=== PATIENT | male | born 1985 | race Hispanic/Latino ===

== ENCOUNTER 2020-01-15 12:32 | Emergency (ER) | payer OTHER ==
[2020-01-15] MEDS ORDERED: Acetaminophen 500 MG TAB ONE (13:14)
[2020-01-15 13:28] LABS: #Lymphocytes 1.3 thou/uL (1.20-3.40); #Monocytes 0.7 thou/uL (0.11-0.59); #Neutrophils 13.3 thou/uL (1.40-6.50); %Basophils 0.1 % (0.0-1.0); %Eosinophils 0.2 % (0.0-10.0); %Lymphocytes 8.3 % (21.0-51.0); %Monocytes 4.5 % (0.0-10.0); Hemoglobin 16.2 g/dL (14.0-18.0); Mean Corpuscular HGB CONC 34.8 g/dL (32.0-36.0); Mean Corpuscular Hemoglobin 31.2 pg (27.0-31.0); Mean Corpuscular Volume 89.6 fL (78.0-98.0); Mean Platelet Volume 9.7 fL (7.4-10.4); Platelet Count 177 thou/uL (130-400); RBC Distribution Width 11.3 % (11.5-14.5); White Blood Cell (WBC) Count 15.2 thou/uL (4.8-10.8)
[2020-01-15 13:49] LABS: ALT (SGPT) 35 U/L (8-55); AST (SGOT) 26 U/L (5-34); Albumin 4.9 g/dL (3.5-5.0); Alkaline Phosphatase 150 U/L (40-110); Anion Gap 13 mmol/L (10-20); Bilirubin, Total 0.7 mg/dL (0.2-1.2); Calc. Creatinine Clearance 0 mL/min (70-130); Calcium 9.8 mg/dL (7.8-10.44); Carbon Dioxide 25 mmol/L (22-29); Chloride 102 mmol/L (98-107); Estimated GFR-MDRD 90; Globulin 3.5 g/dL (2.4-3.5); Glucose 109 mg/dL (70-105); Potassium 3.6 mmol/L (3.5-5.1); Protein, Total 8.4 g/dL (6.0-8.3); Sodium 136 mmol/L (136-145)
--- NOTE | 2020-01-15 13:53 | RAD ---
PORTABLE CHEST: 01/15/20 at 1:01 p.m. HISTORY: Sore throat, bodyaches. FINDINGS: The cardiomediastinum is normal. The lungs are clear. The bony thorax is normal. IMPRESSION: Normal exam. POS: [facility]
[2020-01-15 14:22] LABS: BUN (Urea Nitrogen) 10 mg/dL (8.9-20.6)
[2020-01-15 18:48] LABS: SARS-CoV-2 MS2 Positive; SARS-CoV-2 N Gene Negative; SARS-CoV-2 S Gene Negative; SARS-CoV-2 orf1ab Negative
--- NOTE | 2020-01-16 15:57 | EKG ---
Test Reason : Blood Pressure : / mmHG Vent. Rate : 098 BPM Atrial Rate : 098 BPM P-R Int : 110 ms QRS Dur : 084 ms QT Int : 328 ms P-R-T Axes : 000 -19 160 degrees QTc Int : 418 ms Sinus rhythm with short MD Nonspecific T wave abnormality S1 Q3 T3 pattern Abnormal ECG Confirmed by JAMES FERNANDES DO ([id number]), publication editor JAYLIN DENISE ([id number]) on 01/16/2020 3:56:40 PM Referred By: Confirmed By:JAMES FERNANDES DO
== END 2020-01-15 14:50 | disposition home or self-care (01) ==
LOC: ERS 12:32
DX: J06.9 Acute upper respiratory infection, unspecified (principal); Z20.828 Contact with and (suspected) exposure to other viral communicable diseases
CPT/HCPCS: 71045; 80053; 83605; 85025; 87040; 87081; 87430; 87635; 87804; 93005; U0003

== ENCOUNTER 2020-03-12 08:02 | Inpatient (IN) | payer SELFPAY ==
[2020-03-12] MEDS ORDERED: Meclizine HCl 25 MG TAB ONE (08:37)
[2020-03-12] MEDS ORDERED: Labetalol HCl 100 MG/20 ML VIAL ONE (08:37)
[2020-03-12 08:41] LABS: #Monocytes 0.3 thou/uL (0.11-0.59); #Neutrophils 5.7 thou/uL (1.40-6.50); %Basophils 0.2 % (0.0-1.0); %Eosinophils 0.4 % (0.0-10.0); %Lymphocytes 13.8 % (21.0-51.0); %Monocytes 3.7 % (0.0-10.0); %Neutrophils 81.9 % (42.0-75.0); Hemoglobin 15.4 g/dL (14.0-18.0); Mean Corpuscular HGB CONC 35.3 g/dL (32.0-36.0); Mean Corpuscular Hemoglobin 31.4 pg (27.0-31.0); Mean Platelet Volume 9.9 fL (7.4-10.4); Platelet Count 150 thou/uL (130-400); RBC Distribution Width 11.5 % (11.5-14.5)
--- NOTE | 2020-03-12 08:55 | CT ---
CT BRAIN WITHOUT CONTRAST: HISTORY: Dizziness, vertigo FINDINGS: No evidence of acute infarct, hemorrhage, midline shift or abnormal extra-axial fluid collections is seen. The ventricular size is appropriate and the basilar cisterns are patent. The bony calvarium is intact. The visualized paranasal sinuses are well aerated. IMPRESSION: No CT evidence of acute intracranial process.
[2020-03-12 09:09] LABS: ALT (SGPT) 35 U/L (8-55); AST (SGOT) 33 U/L (5-34); Albumin 4.7 g/dL (3.5-5.0); Alkaline Phosphatase 107 U/L (40-110); Anion Gap 14 mmol/L (10-20); BUN (Urea Nitrogen) 11 mg/dL (8.9-20.6); Bilirubin, Total 0.6 mg/dL (0.2-1.2); Calc. Creatinine Clearance 0 mL/min (70-130); Carbon Dioxide 23 mmol/L (22-29); Chloride 105 mmol/L (98-107); Estimated GFR-MDRD Greater than 90; Glucose 141 mg/dL (70-105); Potassium 3.6 mmol/L (3.5-5.1); Protein, Total 7.7 g/dL (6.0-8.3); Sodium 138 mmol/L (136-145)
[2020-03-12 09:19] LABS: Acetaminophen Less than 6.0 mcg/mL (10.0-30.0); Alcohol Less than 10 mg/dL (Less than 10); Salicylate Less than 8.0 mg/dL (15.0-30.0)
[2020-03-12] MEDS ORDERED: Lorazepam 2 MG/ML VIAL ONE (09:27)
[2020-03-12 09:31] LABS: CKMB 2.8 ng/mL (0-6.6)
[2020-03-12] MEDS ORDERED: Aspirin Chewable 81 MG TAB ONE (09:34)
[2020-03-12] MEDS ORDERED: hydrALAZINE 20 MG/ML VIAL ONE (10:12)
[2020-03-12] MEDS ORDERED: Labetalol HCl 100 MG/20 ML VIAL SLOW IVP PRN (11:39)
[2020-03-12] MEDS ORDERED: hydrALAZINE 20 MG/ML VIAL SLOW IVP PRN (11:39)
--- NOTE | 2020-03-12 12:45 | HP ---
PRIMARY CARE PHYSICIAN: None. CHIEF COMPLAINT: Dizziness upon waking. HISTORY OF PRESENT ILLNESS: The patient is a 34-year-old male with past medical history significant for deafness since and presents to the ER today after waking up feeling dizzy. He denies any trauma, headache, shortness of breath, chest pain, substance abuse. He does state that he has been nauseated, though no vomiting or diarrhea. No abdominal pain. Today in the ER, they completed a brain CT, lab work and EKG. PAST MEDICAL HISTORY: Deafness since . PAST SURGICAL HISTORY: None. ALLERGIES: NO KNOWN DRUG ALLERGIES. MEDICATIONS: No home medications. No [id number] medications. SOCIAL HISTORY: The patient lives with two roommates. 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 He denies any smoking or drug use. He does drink occasionally on the weekends. FAMILY HISTORY: Mother is positive for hypertension. REVIEW OF SYSTEMS: All other review of systems are negative unless noted in HPI. PHYSICAL EXAMINATION: VITAL SIGNS: Blood pressure 167/119, pulse 77, respiratory rate 18, temperature 98.1, O2 saturation 99% on room air. GENERAL: The patient appears nontoxic and pain free. HEENT: Head, atraumatic and normocephalic. Eyes, PERRLA. Extraocular muscles intact. Nystagmus present horizontally and vertically. ENT, hearing absent on left and right. Mucous membranes moist. Normal dentition. NECK: Trachea midline. No lymphadenopathy. RESPIRATORY: Clear to auscultation bilaterally. Normal chest rise. No rhonchi, no wheezes, no rales. CARDIOVASCULAR: Regular rate and rhythm. No murmurs. No gallops. No rubs. ABDOMEN: Bowel sounds normal. No distention. No masses. No rigidity. EXTREMITIES: No edema. Posterior tibial pulse normal. No cyanosis. NEURO: Cranial nerves 2 through 12 are intact. Nystagmus noted horizontally and vertically. Cerebellar intact. 5/5 strength in upper and lower extremities. I did not assess gait at this time. SKIN: Warm, dry, and intact. PSYCH: Normal affect. Normal behavior. LABORATORY DATA: EKG shows sinus rhythm, 62 beats per minute. No ectopic beats. Brain CT showed no CT evidence of acute intracranial process. White blood cells 7.0, hemoglobin 15.4, hematocrit 43.6. Sodium 138, potassium 3.6, BUN 11, creatinine 0.83, GFR greater than 90, glucose 141. CK-MB 2.8, troponin 0.033. IMPRESSION AND PLAN: Dizziness with ischemic stroke versus hypertensive urgency. The patient has been given multiple doses of antihypertensive medications in the ER. His blood pressure is now down to 167/119. We will continue to monitor it on telemetry throughout his hospital stay and get him started on oral antihypertensives. His troponins were slightly elevated. We will continue to monitor them and may be due to demand from the hypertension, so we will continue to trend those. He does deny any chest pain this morning, any shortness of breath. We will have Neurology come and evaluate the patient along with completing a stroke workup of an echo and MRI. Fasting lipid will be drawn in the morning. Stroke Team will be consulted for the patient. The patient wishes to be a full code at this time. His brother Erasmo is his designated power of trade mark attorney. The patient has been discussed with Dr. Levin. Job ID: [id number]
--- NOTE | 2020-03-12 12:51 | MRI ---
MRI BRAIN WITHOUT CONTRAST: HISTORY: Vertigo, dizziness CORRELATION: CT scan from 03/12/2020. FINDINGS: No restricted diffusion is seen. There are multiple foci of T2 prolongation in the periventricular wh ite matter which are nonspecific and may be due to chronic headaches, deep white matter matter ischemic disease or demyelinating disorders.. The ventricular size is appropriate and the basilar cis terns are patent. No evidence of acute infarct, hemorrhage, midline shift or abnormal extra-axial fluid collections is seen. No tonsillar herniation is seen. There is mucosal disease in the paranasal sinuses. There is fluid in the mastoid air cells. IMPRESSION: No evidence of acute intracranial process.
[2020-03-12 13:31] LABS: Troponin I 0.023 ng/mL (< 0.028)
--- NOTE | 2020-03-12 14:28 | CON ---
NEUROLOGY CONSULTATION DATE OF CONSULTATION: 03/12/2020 REASON FOR CONSULTATION: Extreme dizziness. HISTORY OF PRESENT ILLNESS: Mr. Deric Feng is a 34-year-old male with past medical history significant for deafness since , presented to the emergency room after waking up and feeling extremely dizzy with nausea, but no vomiting. He also complains of headache. The history is taken from the patient's brother who communicated with the patient. The patient felt dizzy, but he does not feel dizzy and has a headache He denies focal weakness, focal paresthesias, vertigo, chest pain, abdominal pain, blurred vision, loss of vision, or loss of consciousness associated with the episode. The family decided to bring him to the emergency room for further evaluation since the dizziness did not resolve. In the emergency room, head CT was done, which was unremarkable, and EKG was also unremarkable. REVIEW OF SYSTEMS: All 10 systems were reviewed and were negative except the pertinent positive and negative mentioned in the HPI. PAST SURGICAL HISTORY: None. ALLERGIES: NO KNOWN DRUG ALLERGIES. MEDICATIONS: No home medications. SOCIAL HISTORY: The patient lives with two roommates. 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 He denies smoking or illegal drug use. FAMILY HISTORY: Family history is significant for hypertension. PHYSICAL EXAMINATION: VITAL SIGNS: Blood pressure 167/119, pulse 77, respiratory rate 18, and temperature 98. GENERAL: Alert and awake male, in mild distress. CVS: Regular rate and rhythm. CHEST: Clear. ABDOMEN: Soft. NECK: Supple. NEUROLOGICAL: Mental status; the patient is alert and oriented to person, place , and time. The brother, who is also the caregiver, helps with communicating with the patient. Cranial nerves 2 through 12 intact. Motor; muscle tone and bulk are normal. Strength 5/5 bilaterally. Cerebellar, no dysmetria to [id number] testing. Of note, the patient had initial dysmetria when he presented to the emergency room when examined by the ER physician. Gait deferred due to the patient's safety reasons. Sensory intact. DATA REVIEWED: I reviewed the CT scan, which did not reveal any acute intracranial pathology. EKG showed normal sinus rhythm. Labs were essentially unremarkable. ASSESSMENT AND PLAN: Mr. Deric Feng is consulted for extreme dizziness on waking up this morning associated with headache. He came to the emergency room with hypertensive emergency with blood pressure of 167/119. The symptoms improved after management of hypertension, most likely hypertensive emergency. MRI of the brain reviewed, which was negative for acute intracranial pathology. Strict control of blood pressure at this time. Check fasting lipid panel, hemoglobin A1c, TSH, telemetry . Neuro checks every 4 hours. Telemetry. Continue medical management per primary team. We will continue to follow. Thank you for the consult. Job ID: [id number] PANCHITO
[2020-03-12 15:49] LABS: Troponin I 0.011 ng/mL (< 0.028)
[2020-03-12 19:00] LABS: Troponin I Less than 0.010 ng/mL (< 0.028)
[2020-03-12] MEDS: Atorvastatin Calcium 40 MG TAB PO SCH (20:59)
[2020-03-13 04:28] LABS: #Eosinphils 0.1 thou/uL (0.0-0.7); #Lymphocytes 1.7 thou/uL (1.20-3.40); #Monocytes 0.5 thou/uL (0.11-0.59); %Basophils 0.4 % (0.0-1.0); %Eosinophils 0.8 % (0.0-10.0); %Lymphocytes 26.6 % (21.0-51.0); %Monocytes 8.2 % (0.0-10.0); %Neutrophils 63.9 % (42.0-75.0); Hemoglobin 14.9 g/dL (14.0-18.0); Mean Corpuscular HGB CONC 33.4 g/dL (32.0-36.0); Mean Corpuscular Volume 89.7 fL (78.0-98.0); Platelet Count 173 thou/uL (130-400); RBC Distribution Width 11.8 % (11.5-14.5); Red Blood Cell (RBC) Count 4.96 mill/uL (4.70-6.10); White Blood Cell (WBC) Count 6.3 thou/uL (4.8-10.8)
[2020-03-13 04:48] LABS: Anion Gap 10 mmol/L (10-20); BUN (Urea Nitrogen) 10 mg/dL (8.9-20.6); Calc. Creatinine Clearance 131 mL/min (70-130); Calcium 9.3 mg/dL (7.8-10.44); Carbon Dioxide 26 mmol/L (22-29); Cardiac Risk 3.9 (Less than 4.5); Chloride 103 mmol/L (98-107); Cholesterol 215 mg/dl (< 200 Desired); Estimated GFR-MDRD Greater than 90; Glucose 97 mg/dL (70-105); HDL Cholesterol 55 mg/dL (>60 Neg Risk); LDL Cholesterol, Calculated 135 mg/dL; Potassium 3.4 mmol/L (3.5-5.1); Sodium 136 mmol/L (136-145); Triglycerides 125 mg/dL (Less than 150)
[2020-03-13] MEDS ORDERED: Metoprolol Tartrate 50 MG TAB PO SCH (09:30)
[2020-03-13] MEDS ORDERED: Potassium Chloride 20 MEQ TAB PO SCH (09:30)
[2020-03-13] MEDS ORDERED: Lisinopril 10 MG TAB PO SCH (09:30)
[2020-03-13] MEDS: Aspirin 81 mg Enteric Coated Tablet PO SCH (09:34)
[2020-03-13] MEDS: Acetaminophen 325 MG TAB PO PRN (09:34)
[2020-03-13] MEDS: Amlodipine 5 MG TAB PO SCH (09:35)
--- NOTE | 2020-03-13 13:45 | PDOC.HOSPP ---
- Subjective Encounter Date: 03/13/20 Encounter Time: 11:30 Subjective: Pt seen for follow up for hypertensive urgency. Pt reports overall improvement in symptoms today. The dizziness is worse when standing up. - Objective Vital Signs & Weight: Vital Signs (12 hours) Temp Pulse Pulse Pulse Resp BP BP 03/13/20 11:10 98.6 F 65 14 03/13/20 09:36 164/98 H 03/13/20 09:35 62 164/98 H 03/13/20 09:11 71 82 171/106 H 03/13/20 07:38 98.3 F 62 13 03/13/20 04:00 97.8 F 66 18 BP BP Pulse Ox 03/13/20 11:10 175/108 H 99 03/13/20 09:36 03/13/20 09:35 03/13/20 09:11 191/106 H 03/13/20 07:38 158/94 H 98 03/13/20 04:00 141/97 H 100 Weight Weight 169 lb 15.622 oz I&O: 03/12/20 03/13/20 03/14/20 06:59 06:59 06:59 Intake Total 240 Balance 240 Result Diagrams: 03/13/20 03:53 03/13/20 03:53 Additional Labs: Labs and MARs reviewed by me EKG Reviewed by me: Yes (Tele: NSR) Hospitalist ROS - Review of Systems Constitutional: denies: fever, chills, sweats, weakness, malaise Respiratory: denies: cough, shortness of breath, pleuritic pain Cardiovascular: denies: chest pain, palpitations, edema, light headedness Gastrointestinal: denies: nausea, vomiting, abdominal pain, diarrhea, constipation Genitourinary: denies: dysuria Neurological: reports: other (dizziness) - Medication Medications: Active Medications Generic Name Dose Route Start Last Admin Trade Name Freq PRN Reason Stop Dose Admin Acetaminophen 650 mg 03/12/20 11:39 03/13/20 09:34 Tylenol PO 650 mg Q4H PRN Administration Headache/Fever/Mild Pain (1-3) Amlodipine Besylate 5 mg 03/13/20 09:00 03/13/20 09:35 Norvasc PO 5 mg DAILY CARMEN Administration Aspirin 81 mg 03/13/20 09:00 03/13/20 09:34 Ecotrin PO 81 mg DAILY CARMEN Administration Atorvastatin Calcium 40 mg 03/12/20 21:00 03/12/20 20:59 Lipitor PO 40 mg HS CARMEN Administration Hydralazine HCl 10 mg 03/12/20 11:39 03/12/20 18:20 Apresoline SLOW IVP 10 mg Q4H PRN Administration BP > 220/110 Pantoprazole Sodium 40 mg 03/13/20 09:00 03/13/20 09:34 Protonix PO 40 mg DAILY CARMEN Administration - Exam General Appearance: awake alert ENT: normocephalic atraumatic, moist mucosa Heart: RRR, no gallops, no rubs, normal peripheral pulses Respiratory: CTAB, no wheezes, no rales, no ronchi, normal chest expansion Gastrointestinal: soft, non-tender, non-distended, normal bowel sounds Extremities: no cyanosis, no clubbing, no edema Neurological: normal sensation to touch, no weakness Psychiatric: normal affect, A&O x 3 Hosp A/P (1) Hypertensive urgency Code(s): I16.0 - HYPERTENSIVE URGENCY Status: Acute (2) Dizziness Code(s): R42 - DIZZINESS AND GIDDINESS Status: Acute (3) Hypokalemia Code(s): E87.6 - HYPOKALEMIA Status: Acute (4) Dyslipidemia Code(s): E78.5 - HYPERLIPIDEMIA, UNSPECIFIED Status: Acute - Plan PT/OT, out of bed/ambulate Continue antihypertensives Replace potassium. Continue atorvastatin. Monitor vital signs, titrate antihypertensives as needed.
--- NOTE | 2020-03-13 13:45 | PDOC.HOSPP ---
- Subjective Encounter Date: 03/13/20 Subjective: NEUROLOGY PROGRESS NOTE Patient condition improved but still feels little dizzy. - Objective Vital Signs & Weight: Vital Signs (12 hours) Temp Pulse Pulse Pulse Resp BP BP 03/13/20 11:10 98.6 F 65 14 03/13/20 09:36 164/98 H 03/13/20 09:35 62 164/98 H 03/13/20 09:11 71 82 171/106 H 03/13/20 07:38 98.3 F 62 13 03/13/20 04:00 97.8 F 66 18 BP BP Pulse Ox 03/13/20 11:10 175/108 H 99 03/13/20 09:36 03/13/20 09:35 03/13/20 09:11 191/106 H 03/13/20 07:38 158/94 H 98 03/13/20 04:00 141/97 H 100 Weight Weight 169 lb 15.622 oz Result Diagrams: 03/13/20 03:53 03/13/20 03:53 Radiology Reviewed by me: Yes EKG Reviewed by me: Yes Hospitalist ROS - Review of Systems ROS unobtainable: due to mental status (deafness) - Medication Medications: Active Medications Generic Name Dose Route Start Last Admin Trade Name Freq PRN Reason Stop Dose Admin Acetaminophen 650 mg 03/12/20 11:39 03/13/20 09:34 Tylenol PO 650 mg Q4H PRN Administration Headache/Fever/Mild Pain (1-3) Amlodipine Besylate 5 mg 03/13/20 09:00 03/13/20 09:35 Norvasc PO 5 mg DAILY CARMEN Administration Aspirin 81 mg 03/13/20 09:00 03/13/20 09:34 Ecotrin PO 81 mg DAILY CARMEN Administration Atorvastatin Calcium 40 mg 03/12/20 21:00 03/12/20 20:59 Lipitor PO 40 mg HS CARMEN Administration Hydralazine HCl 10 mg 03/12/20 11:39 03/12/20 18:20 Apresoline SLOW IVP 10 mg Q4H PRN Administration BP > 220/110 Pantoprazole Sodium 40 mg 03/13/20 09:00 03/13/20 09:34 Protonix PO 40 mg DAILY CARMEN Administration - Exam General Appearance: awake alert Eye: PERRL ENT: normocephalic atraumatic Neck: supple Heart: RRR Respiratory: CTAB Gastrointestinal: soft Extremities: no cyanosis Skin: normal turgor Neurological: no focal deficits, no new deficit Musculoskeletal: normal tone, normal strength, no muscle wasting Psychiatric: normal affect, normal behavior, A&O x 3 Hosp A/P (1) Dizziness Code(s): R42 - DIZZINESS AND GIDDINESS Status: Acute (2) Hypertension Code(s): I10 - ESSENTIAL (PRIMARY) HYPERTENSION Status: Acute - Plan PT/OT 34 year old presented with acute onset dizziness which is now improved in the setting of hypertensive emergency. MRI brain negative for acute process. Neurochecks every 4 hours. Strict control of BP. Continue home meds. 2 D echo pending. PT/OT Continue medical management per primary team.
[2020-03-13] MEDS ORDERED: Metoprolol Tartrate 25 MG TAB PO SCH (21:00)
[2020-03-13] MEDS: Atorvastatin Calcium 40 MG TAB PO SCH (21:36)
[2020-03-14] MEDS ORDERED: Meclizine HCl 25 MG TAB PO PRN (08:55)
[2020-03-14] MEDS ORDERED: Lisinopril 5 MG TAB PO SCH (09:00)
[2020-03-14] MEDS ORDERED: Meclizine HCl 25 MG TAB PO SCH (09:00)
[2020-03-14] MEDS: Amlodipine 5 MG TAB PO SCH (09:23)
[2020-03-14] MEDS: Aspirin 81 mg Enteric Coated Tablet PO SCH (09:23)
[2020-03-14 11:43] VITALS: BP 122/70
[2020-03-14] MEDS: Acetaminophen 325 MG TAB PO PRN (12:29)
[2020-03-14 13:49] VITALS: TEMP 97.3
--- NOTE | 2020-03-14 15:40 | DIS ---
DATE OF ADMISSION: 03/12/2020 DATE OF DISCHARGE: 03/14/2020 PRIMARY CARE PROVIDER: Caroline Kaufman. DISCHARGE DIAGNOSES: 1. Vertigo. 2. Dyslipidemia. 3. Hypertensive urgency. 4. Hypokalemia. CONDITION: Condition of the patient on the day of discharge: Stable. I assessed Mr. Larry Feng on the day of discharge. He denies any chest pain or shortness of breath. Vertigo has resolved. Vital signs are stable. S1 and S2 are heard, regular. Lungs are clear to auscultation bilaterally. DISCHARGE MEDICATIONS: 1. Amlodipine 5 mg daily. 2. Atorvastatin 20 mg at bedtime. 3. Lisinopril 5 mg daily. CONSULTATIONS DURING THIS HOSPITALIZATION: Neurology, Dr. Garcia. HOSPITAL COURSE: Mr. Larry Feng is a pleasant 34-year-old gentleman, who was admitted to [facility] on March 12, 2020, for hypertensive urgency and vertigo. MRI of the brain did not show any evidence of acute intracranial process. He also had 2D echocardiogram, report is pending at the time of this dictation. He was started on amlodipine and lisinopril with improvement in his blood pressure. Fasting lipid profile showed triglycerides 125, cholesterol 215, LDL cholesterol 135, and HDL cholesterol 55. He has been started on low-dose atorvastatin. He is advised to have his liver function monitored through primary care provider's office. He is also advised to follow up with primary care provider's office for report from the 2D echocardiogram. He has been advised that he may need to see an ENT specialist if his dizziness recurs. POST-ACUTE CARE FOLLOWUP: With primary care provider on March 17, 2020, at 2:30 p.m. ACTIVITY: As tolerated. DIET: Heart healthy. DISCHARGE DESTINATION: Home. TIME SPENT: Total amount of time spent in coordinating this discharge: 32 minutes. Please note that on March 13, he had sodium of 136, potassium 3.4, which was replaced, blood urea nitrogen 10, creatinine 0.85. White count 6300, hemoglobin 14.9, and platelet count 173,000. ADDENDUM: 2D echocardiogram showed left ventricular ejection fraction of 45% to 50%, grade 2/3 diastolic dysfunction, mitral annular calcification, mild mitral regurgitation, mild tricuspid regurgitation, and mild pulmonic regurgitation. Job ID: [id number]
== END 2020-03-14 16:30 | disposition home or self-care (01) | DRG 304 ==
LOC: ERS 08:02 → ERHOLD 10:10 → 2NO 18:05
PROVIDERS: ADMIT Internal Medicine; ATTEND Internal Medicine
DX: I16.0 Hypertensive urgency (principal); I67.83 Posterior reversible encephalopathy syndrome; I16.1 Hypertensive emergency; E78.5 Hyperlipidemia, unspecified; E87.6 Hypokalemia; I08.1 Rheumatic disorders of both mitral and tricuspid valves; Z88.0 Allergy status to penicillin
CPT/HCPCS: 36415; 70450; 70551; 80048; 80053; 80061; 80307; 82553; 84484; 85025; 93005; 93306; 96361; 96374; 96375; 96376; J0360; J2060